=== PATIENT | male | born 1965 | race Caucasian/White ===

== ENCOUNTER 2019-01-18 09:25 | Day surgery (SDC) | payer MEDICAID ==
[2019-01-18] MEDS ORDERED: LIDOcaine 2% 5ml jelly ONE (09:57)
== END 2019-01-18 11:45 | disposition home or self-care (01) ==
LOC: WOUND CARE 09:25
PROVIDERS: ATTEND Surgery
DX: L89.322 Pressure ulcer of left buttock, stage 2 (principal); J44.9 Chronic obstructive pulmonary disease, unspecified; E78.5 Hyperlipidemia, unspecified; I10 Essential (primary) hypertension; M19.90 Unspecified osteoarthritis, unspecified site; F17.200 Nicotine dependence, unspecified, uncomplicated; Z89.512 Acquired absence of left leg below knee
CPT/HCPCS: 97597; A4663; A6021; A6154; A6212

== ENCOUNTER 2019-01-25 09:38 | Outpatient (CLI) | payer MEDICAID | END 2019-01-25 11:48 | disposition home or self-care (01) | LOC: WOUND CARE 09:38 | PROVIDERS: ATTEND Surgery | DX: L89.322 Pressure ulcer of left buttock, stage 2 (principal); L89.312 Pressure ulcer of right buttock, stage 2; J44.9 Chronic obstructive pulmonary disease, unspecified; E78.5 Hyperlipidemia, unspecified; I10 Essential (primary) hypertension; M19.90 Unspecified osteoarthritis, unspecified site; F17.200 Nicotine dependence, unspecified, uncomplicated; Z89.512 Acquired absence of left leg below knee | CPT/HCPCS: A4663; A6212; G0463 ==

== ENCOUNTER 2019-01-26 14:15 | Emergency (ER) | payer MEDICAID ==
[~2019-01-26] VITALS: Ht 185.4 cm; Wt 73.6 kg
[2019-01-26 15:52] VITALS: BP 117/73
--- NOTE | 2019-01-26 15:53 | NUR ---
PT SEEN AND DC'D BY PROVIDER
== END 2019-01-26 15:53 | disposition home or self-care (01) ==
LOC: ER 14:15
DX: Z02.89 Encounter for other administrative examinations (principal); R00.0 Tachycardia, unspecified; Z88.8 Allergy status to other drugs, medicaments and biological substances
CPT/HCPCS: 99281